=== PATIENT | female | born 2000 | race Two or more races ===

== ENCOUNTER 2023-05-05 21:59 | Emergency (ER) | payer OTHER ==
[~2023-05-05] VITALS: Ht 167.6 cm; Wt 63.5 kg
[2023-05-06] MEDS ORDERED: CHILDREN'S MOT100 MG PO ×2 (01:52)
== END 2023-05-06 02:01 ==
LOC: ER 21:59 → EMR PED 21:59
DX: S93.401A Sprain of unspecified ligament of right ankle, initial encounter (principal); X58.XXXA Exposure to other specified factors, initial encounter; Y93.89 Activity, other specified; Y92.89 Other specified places as the place of occurrence of the external cause; Y99.9 Unspecified external cause status